=== PATIENT | female | born 1945 | race African-American/Black ===

== ENCOUNTER 2017-03-22 19:25 | Emergency (ER) | payer BC ==
[~2017-03-22 19:25] MED LIST: ASAB PO; CALTRA600D PO; DILT-XR120 MG PO; FERROUS SULF324 MG PO; FOLIC PO; HUMIRA SC; L20 PO; LAM250 PO; LORT7 PO; LORTAB10 PO; MTX2.5 PO; NEXIUM40 PO; OS500 PO; OS500+D PO; P1 PO; P5 PO; PREV30 PO; RESTASIS OPH; SPIRO25 PO; SULFAZINE500 MG PO; VITAMIN D400 UNI1 PO; VITD PO
[2017-03-22 20:53] LABS: CALCIUM, SERUM 9.2 MG/DL (8.5-10.4); CHLORIDE, SERUM 103 MMOL/L (96-112); CO2 (CARBON DIOXIDE) 32 MMOL/L (24-34); CREATININE 1.31 MG/DL (0.55-1.02); GFR AFRICAN AMERICAN 48 ML/MIN (>=60); GFR NON AFRICAN AMERICAN 41 ML/MIN (>=60); SODIUM, SERUM 136 MMOL/L (135-148)
[2017-03-22 20:54] LABS: BUN (BLOOD UREA NITROGEN) 19 MG/DL (6-23); GLUCOSE, SERUM 151 MG/DL (60-99); POTASSIUM, SERUM 5.3 MMOL/L (3.5-5.3)
[2017-04-26] MEDS ORDERED: METHOC750B PO (14:02)
[2017-04-26] MEDS ORDERED: FLONASE NAS (14:03)
[2017-04-26] MEDS ORDERED: PROAIRRESP INH (14:05)
[2017-04-26] MEDS ORDERED: SINGULAIR1 PO (14:06)
[2017-04-26] MEDS ORDERED: FOLIC ACID400 MC1 PO (14:06)
[2017-04-26] MEDS ORDERED: SYMBICORT 160/41 INH INH (14:06)
[2017-04-26] MEDS ORDERED: MIRALAX POWDER1 PKT PO (14:07)
== END 2017-03-22 21:17 | disposition home or self-care (01) ==
LOC: ER 19:25
PROVIDERS: Physician Assistant
DX: R25.2 Cramp and spasm (principal); J45.909 Unspecified asthma, uncomplicated; R73.9 Hyperglycemia, unspecified; K21.9 Gastro-esophageal reflux disease without esophagitis; D64.9 Anemia, unspecified; Z88.8 Allergy status to other drugs, medicaments and biological substances; Z79.82 Long term (current) use of aspirin; Z79.899 Other long term (current) drug therapy
CPT/HCPCS: 80048; 96372; 99285; J2360

== ENCOUNTER 2017-04-29 06:36 | Day surgery (SDC) | payer BC ==
--- NOTE | ~2017-04-29 | EGD ---
EGD REPORT [facility] [address] [address] NAME: CONNOR CARRASCO : [birth year] STATUS : REG [facility]#: [id number] AGE: 71 ADM/REG DATE : 04/29/17 MR#: [id number] REPORT SERV DATE: 04/29/17 DICTATED BY: RHONA VEGA DATE: 04/29/17 REPORT STATUS : Draft TRANSCRIBED BY: [employer] DATE: 04/29/17 Endoscopy Center Patient Name: Connor Carrasco Date of : 1945 Attending MD: RHONA VEGA MD Procedure Date No Time: 04/29/2017 Procedure: Upper GI endoscopy Indications: Dysphagia, Heartburn, Suspected esophageal reflux Referring MD: Kaushal Parker MD Medicines: as per anesthesia Complications: No immediate complications. Procedure: After obtaining informed consent, the endoscope was passed under direct vision. Throughout the procedure, the patient's blood pressure, pulse, and oxygen saturations were monitored continuously. The GIF [id number] was introduced through the mouth, and advanced to the third part of duodenum. The upper GI endoscopy was accomplished without difficulty. The patient tolerated the procedure. Findings: The examined esophagus was normal. The scope was withdrawn. Dilation was performed with a Burris dilator with no resistance at 46 Fr. A medium-sized hiatus hernia was present. The examined duodenum was normal. Impression: - Normal esophagus. Dilated. - Hiatus hernia. - Normal examined duodenum. Recommendation: - Follow an antireflux regimen. - Continue present medications. Procedure Code(s): --- Professional --- 24336, Esophagogastroduodenoscopy, flexible, transoral; diagnostic, including collection of specimen(s) by brushing or washing, when performed (separate procedure) 56542, Dilation of esophagus, by unguided sound or bougie, single or multiple passes Diagnosis Code(s): --- Professional --- K44.9, Diaphragmatic hernia without obstruction or gangrene R13.10, Dysphagia, unspecified R12, Heartburn EGD REPORT [facility] [address] [place] [address] [place] [address] NAME: CONNOR CARRASCO : [birth year] STATUS : REG [facility] PAT#: [id number] AGE: 71 ADM/REG DATE : 04/29/17 MR#: [id number] REPORT SERV DATE: 04/29/17 DICTATED BY: RHONA VEGA DATE: 04/29/17 REPORT STATUS : Draft TRANSCRIBED BY: [employer] DATE: 04/29/17 CPT copyright 2013 [employer]. All rights reserved. The codes documented in this report are preliminary and upon lbd teacher review may be revised to meet current compliance requirements. RHONA VEGA MD 04/29/2017 9:39 AM This report has been signed electronically. Number of Addenda: 0 Note Initiated On: 04/29/2017 9:24 AM Scope Withdrawal Time 0 hours 0 minutes 0 seconds [address] [facility] [place] [address]
--- NOTE | ~2017-04-29 | EGD ---
EGD REPORT [facility] [address] [address] NAME: CONNOR CARRASCO : [birth year] STATUS : REG [facility]#: [id number] AGE: 71 ADM/REG DATE : 04/29/17 MR#: [id number] REPORT SERV DATE: 04/29/17 DICTATED BY: RHONA VEGA DATE: 04/29/17 REPORT STATUS : Draft TRANSCRIBED BY: [facility] DATE: 04/29/17 Endoscopy Center Patient Name: Connor Carrasco Date of : 1945 Attending MD: RHONA VEGA MD Procedure Date No Time: 04/29/2017 Procedure: Colonoscopy Indications: Screening in patient at increased risk: Family history of 1st-degree relative with colorectal cancer Referring MD: Kaushal Parker MD Medicines: as per anesthesia Complications: No immediate complications. Procedure: After I obtained informed consent, the scope was passed under direct vision. Throughout the procedure, the patient's blood pressure, pulse, and oxygen saturations were monitored continuously. The PCF [id number] was introduced through the anus and advanced to the cecum, identified by appendiceal orifice and ileocecal valve. The colonoscopy was performed without difficulty. The patient tolerated the procedure. The quality of the bowel preparation was adequate to identify polyps. Findings: The perianal and digital rectal examinations were normal. A few small and large-mouthed diverticula were found in the sigmoid colon and in the descending colon. Internal hemorrhoids were found during endoscopy and were mild. Impression: - Diverticulosis in the sigmoid colon and in the descending colon. - Internal hemorrhoids. Recommendation: - Repeat colonoscopy in 5 years for surveillance. Procedure Code(s): --- Professional --- 60509, Colonoscopy, flexible, proximal to splenic flexure; diagnostic, with or without collection of specimen(s) by brushing or washing, with or without colon decompression (separate procedure) Diagnosis Code(s): --- Professional --- K64.8, Other hemorrhoids K57.30, Diverticulosis of large intestine without perforation or abscess without bleeding Z12.11, Encounter for screening for malignant neoplasm EGD REPORT [facility] [address] [place], [place] [address]. [address] NAME: CONNOR CARRASCO : [birth year] STATUS : REG [facility] PAT#: [id number] AGE: 71 ADM/REG DATE : 04/29/17 MR#: [id number] REPORT SERV DATE: 04/29/17 DICTATED BY: RHONA VEGA. DATE: 04/29/17 REPORT STATUS : Draft TRANSCRIBED BY: [employer] DATE: 04/29/17 of colon Z80.0, Family history of malignant neoplasm of digestive organs CPT copyright 2013 [employer]. All rights reserved. The codes documented in this report are preliminary and upon arranger assembler review may be revised to meet current compliance requirements. RHONA VEGA MD 04/29/2017 10:01 AM This report has been signed electronically. Number of Addenda: 0 Note Initiated On: 04/29/2017 9:23 AM Scope Withdrawal Time 0 hours 7 minutes 57 seconds [address] [facility] [place] [address]
[~2017-04-29 06:36] MED LIST changes: +FLONASE NAS; +FOLIC ACID400 MC1 PO; +METHOC750B PO; +MIRALAX POWDER1 PKT PO; +PROAIRRESP INH; +SINGULAIR1 PO; +SYMBICORT 160/41 INH INH
== END 2017-04-29 23:59 | disposition home or self-care (01) ==
LOC: DMU 06:36
PROVIDERS: Internal Medicine Gastroenterology
PROC: 0DJD8ZZ Inspection of Lower Intestinal Tract, Via Natural or Artificial Opening Endoscopic (ICD-10-PCS; principal; 2017-04-29 08:30)
PROC: 0D757ZZ Dilation of Esophagus, Via Natural or Artificial Opening (ICD-10-PCS; 2017-04-29 08:30)
DX: Z12.11 Encounter for screening for malignant neoplasm of colon (principal); K64.8 Other hemorrhoids; K57.30 Diverticulosis of large intestine without perforation or abscess without bleeding; K44.9 Diaphragmatic hernia without obstruction or gangrene; J45.909 Unspecified asthma, uncomplicated; M06.9 Rheumatoid arthritis, unspecified; E11.9 Type 2 diabetes mellitus without complications; G47.33 Obstructive sleep apnea (adult) (pediatric); K21.9 Gastro-esophageal reflux disease without esophagitis; D64.9 Anemia, unspecified; Z99.81 Dependence on supplemental oxygen; Z80.0 Family history of malignant neoplasm of digestive organs; Z88.5 Allergy status to narcotic agent; Z79.82 Long term (current) use of aspirin; Z79.899 Other long term (current) drug therapy; Z86.010 Personal history of colon polyps; Z98.41 Cataract extraction status, right eye; Z98.42 Cataract extraction status, left eye; Z96.1 Presence of intraocular lens; Z98.890 Other specified postprocedural states
CPT/HCPCS: 43235; 43450; G0105; 82962